=== PATIENT | female | born 1935 | race Caucasian/White ===

== ENCOUNTER → 2016-10-27 | Outpatient (CLI) | payer MEDICARE ==
[~2016-10-27] MED LIST: AC325T PO; ALBU0.8322 IH; ALPR.25T PO; BENZ-24 PO; BUDE10.2 IH; CALC300T10 PO; CHOL100045 PO; CLPD75T PO; DILT60TA30 PO; DOCU100C8 PO; DOXY100T41 PO; FURO40TA4 PO; GABA100C PO; GFN600TCR PO; GLIP10TA2 PO; GLIP5TAB26 PO; HYDR-3754 PO; HYDR-3811 PO; INSU100V2 SC; INSU100V32 SC; IPRA3AMP11 INH; LD5PT TOP; LEVO50TA PO; LEVO750T39 PO; MAG30ORA PO; MAGN400O7 PO; METF500T4 PO; METO5TAB75 PO; MOME13HF2 IH; NFMET1000 PO; NITR0.4T7 SL; ONDAN4ODT PO; PANT40TA2 PO; POLY17PO2 PO; POTA10CA43 PO; PRD10T PO; PRD20T PO; PRED10TA PO; PRED2.5T PO; PRED5TAB46 PO; SENN-115 PO; SPRN25T PO; TIOT18CA IH; TRAZ-28 PO; [UNRECOGNIZED DRUG - CODE] MC
--- NOTE | 2016-10-27 18:32 | Diagnostic Imaging Report ---
INDICATION: Slow-transit constipation. COMPARISON: CT of the abdomen and pelvis 07/03/2014. TECHNIQUE: Two radiographs of the abdomen are obtained dated 10/27/2016. FINDINGS: The minimally visualized lung bases are clear. Surgical clips are identified within the right upper quadrant of the abdomen. Gas and stool is noted within the colon, including extending into the lower pelvis. No dilated loops of small bowel. No evidence of free air. No suspicious calcifications overlying the renal shadows. Mild apex left curvature of the visualized thoracolumbar spine. Chronic compression deformities of the thoracolumbar junction are again identified. Scattered osseous degenerative changes without acute osseous abnormality. IMPRESSION: No acute abnormality identified. No evidence of bowel obstruction. Additional stable chronic findings as described above. Dictated by: Dictated on workstation # [id number]
== END ==
LOC: RAD 11:43
PROVIDERS: ATTEND Family Medicine
DX: K59.01 Slow transit constipation (principal)
CPT/HCPCS: 74000

== ENCOUNTER 2016-11-22 12:18 | Emergency (ER) | payer MEDICARE ==
[~2016-11-22] VITALS: Ht 160 cm; Wt 59.1 kg
[2016-11-22] MEDS ORDERED: SODIUM CHLORIDE FLUSH 10 ML SYR IV PRN (12:50)
[2016-11-22] MEDS ORDERED: SODIUM CHLORIDE FLUSH 3 ML SYR IV PRN (12:50)
[2016-11-22 13:08] LABS: MEAN CORPUSCULAR VOLUME 81 FL (80-100); MEAN PLATELET VOLUME 11.7 FL (6.0-9.5); PLATELET COUNT 405 10^3uL (150-450); WHITE BLOOD COUNT 12.82 10^3uL (4.0-11.0)
[2016-11-22 13:21] LABS: ALBUMIN 3.9 g/dL (3.4-5.0); ANION GAP 15.4 MEQ/L (3-15); CALCULATED IONIZED CALCIUM 4.1 mg/dL (3.8-4.6); TOTAL PROTEIN 6.9 g/dL (6.4-8.5)
[2016-11-22 13:22] LABS: MEAN CORPUSCULAR HEMOGLOBIN 25.5 PG (26.0-34.0); MEAN CORPUSCULAR HGB CONC 31.6 g/dL (31.0-37.0)
[2016-11-22 13:31] LABS: BAND NEUTROPHILS % 9 % (0-6); EOSINOPHILS % 0 % (0-4); MONOCYTES # 0.5 #; MONOCYTES % 4 % (3-11); RBC MORPH NORMAL (NORMAL); SEGMENTED NEUTROPHILS % 79 % (51-67); TOTAL CELLS COUNTED 100
[2016-11-22 14:11] LABS: BILIRUBIN,URINE Negative (Negative); CLARITY,URINE Clear; COLOR,URINE Yellow; GLUCOSE, URINE (UA) Negative (Negative); LEUKOCYTE ESTERASE ,URINE Trace (Negative); UROBILINOGEN,URINE 0.2 mg/dL (0.2-1.0)
[2016-11-22 14:32] LABS: RBC,URINE None Seen /HPF; URINE CENTRIFUGED VOLUME 12 mL
--- NOTE | 2016-11-22 14:34 | NUR ---
DR WALSH TALKS WITH DR VEGA. CL
[2016-11-22 14:54] VITALS: BP 146/78
== END 2016-11-22 15:13 | disposition home or self-care (01) ==
LOC: ED 12:19
DX: R19.5 Other fecal abnormalities (principal); Z79.02 Long term (current) use of antithrombotics/antiplatelets; Z87.891 Personal history of nicotine dependence; R82.99 Other abnormal findings in urine
CPT/HCPCS: 36415; 74022; 80053; 81003; 81015; 82274; 85025; 87088; 96360; 99285; J7030; 99283

== ENCOUNTER → 2017-02-15 | Outpatient (CLI) | payer MEDICARE ==
[2017-02-15 12:09] LABS: MEAN CORPUSCULAR VOLUME 84 FL (80-100); MEAN PLATELET VOLUME 12.1 FL (6.0-9.5); PLATELET COUNT 376 10^3uL (150-450); WHITE BLOOD COUNT 14.68 10^3uL (4.0-11.0)
[2017-02-15 12:10] LABS: MEAN CORPUSCULAR HEMOGLOBIN 25.4 PG (26.0-34.0); MEAN CORPUSCULAR HGB CONC 30.4 g/dL (31.0-37.0)
[2017-02-15 12:13] LABS: BILIRUBIN,URINE Negative (Negative); CLARITY,URINE Clear; COLOR,URINE Yellow; GLUCOSE, URINE (UA) Negative (Negative); LEUKOCYTE ESTERASE ,URINE Trace (Negative); PH,URINE 6.5 (5.0 - 8.0); UROBILINOGEN,URINE 0.2 mg/dL (0.2-1.0)
[2017-02-15 12:19] LABS: BAND NEUTROPHILS % 6 % (0-6); EOSINOPHILS % 0 % (0-4); LYMPHOCYTES # 0.7 #; MONOCYTES # 0.7 #; MONOCYTES % 5 % (3-11); RBC MORPH NORMAL (NORMAL); SEGMENTED NEUTROPHILS % 84 % (51-67); TOTAL CELLS COUNTED 100; URINE CENTRIFUGED VOLUME 12 mL
[2017-02-15 12:21] LABS: RBC,URINE None Seen /HPF
[2017-02-15 12:40] LABS: ALBUMIN 4.1 g/dL (3.4-5.0); ANION GAP 18.7 MEQ/L (3-15); CALCULATED IONIZED CALCIUM 4.1 mg/dL (3.8-4.6); TOTAL PROTEIN 7.3 g/dL (6.4-8.5)
== END ==
LOC: LAB 11:51
PROVIDERS: ATTEND Family Medicine
DX: D50.8 Other iron deficiency anemias (principal); R79.89 Other specified abnormal findings of blood chemistry; N39.0 Urinary tract infection, site not specified; R82.99 Other abnormal findings in urine; E10.65 Type 1 diabetes mellitus with hyperglycemia; E83.42 Hypomagnesemia; M81.0 Age-related osteoporosis without current pathological fracture; E03.9 Hypothyroidism, unspecified
CPT/HCPCS: 36415; 80053; 81003; 81015; 82306; 83036; 83735; 84436; 84443; 85025; 87088